=== PATIENT | male | born 1980 | race Caucasian/White ===

== ENCOUNTER 2018-09-04 23:51 | Emergency (ER) | payer BC ==
[2018-09-05] MEDS ORDERED: IBUPROFEN 400 MG TABLET PO ONE
--- NOTE | 2018-09-05 00:05 | Emergency Department Record ---
History of Present Illness - General Chief complaint: Pain Stated complaint: " HURT MY COLLAR BONE" Time Seen by Provider: 09/04/18 23:52 Source: Patient Mode of Arrival: Ambulatory Limitations: No limitations - History of Present Illness Initial comments: 37 yo male presents to ED for evaluation of pain to the right shoulder after rolling over in bed this evening. Patient reports a previous AC separation several years ago, reports similar pain symptoms this evening. Patient denies weakness, numbness, or tingling to the distal upper extremity. Patient denies health problems at his baseline. MD Complaint: Joint pain Onset/Timin -: Hour(s) Location: Right, Shoulder History of Same: Yes -: Yes Arthralgia Quality: Aching Consistency: Constant Improves with: Nothing Worsens with: Other (Movement) Associated Symptoms: Denies other symptoms - Related Data Home Medications Medication Instructions Recorded Confirmed Last Taken Acetaminophen/Diphenhydramine 1 each PO QHS 09/04/18 09/04/18 Unknown [Tylenol Pm Ex-Strength Caplet] Previous Rx's Medication Instructions Recorded Hydrocodone/Acetaminophen [Nickerson 1 each PO Q6H PRN #10 tablet 09/05/18 7.5-325 Tablet] Allergies Allergy/AdvReac Type Severity Reaction Status Date / Time No Known Drug Allergies Allergy Verified 09/04/18 23:58 Review of Systems Constitutional: Denies: Chills, Fever, Malaise, Night sweats Eyes: Denies: Eye discharge, Eye pain ENT: Denies: Congestion, Ear pain, Epistaxis Respiratory: Denies: Cough, Dyspnea Cardiovascular: Denies: Chest pain, Dyspnea on exertion Endocrine: Denies: Fatigue, Heat or cold intolerance Gastrointestinal: Denies: Abdominal pain, Nausea, Vomiting Genitourinary: Denies: Incontinence, Retention Musculoskeletal: Reports: Arthralgia. Denies: Back pain, Gout, Joint swelling Skin: Denies: Bruising, Change in color Neurological: Denies: Abnormal gait, Confusion, Headache, Seizure Psychiatric: Denies: Anxiety Hematological/Lymphatic: Denies: Anemia, Blood Clots Physical Exam - General General Appearance: Alert, Oriented x3, Cooperative, Moderate distress Limitations: No limitations - Head Head exam: Atraumatic, Normocephalic, Normal inspection Head exam detail: negative: Abrasion, Contusion, Weston's sign, General tenderness, Hematoma, Laceration - Eye Eye exam: Normal appearance. negative: Conjunctival injection, Periorbital swelling, Periorbital tenderness, Scleral icterus - ENT Ear exam: negative: Auricular hematoma, Auricular trauma Nasal Exam: negative: Active bleeding, Discharge, Dried blood, Foreign body Mouth exam: negative: Drooling, Laceration, Muffled voice, Tongue elevation - Neck Neck exam: Normal inspection. negative: Meningismus, Tenderness - Respiratory Respiratory exam: Normal lung sounds bilaterally. negative: Rales, Respiratory distress, Rhonchi, Stridor - Cardiovascular Cardiovascular Exam: Regular rate, Normal rhythm, Normal heart sounds - GI/Abdominal GI/Abdominal exam: Soft. negative: Rebound, Rigid, Tenderness - Rectal Rectal exam: Deferred - exam: Deferred - Extremities Extremities exam: Tenderness (TTP with palpation over the anterior aspect of the AC joint, no evidence for dislocation, administrative support assoc strength 5/5, strong distal radial pulse, compartments of the forearm/upper arm are soft on examination.). negative: Calf tenderness, Pedal edema - Back Back exam: Denies: CVA tenderness (R), CVA tenderness (L) - Neurological Neurological exam: Alert, Normal gait, Oriented X3 - Psychiatric Psychiatric exam: Normal affect, Normal mood - Skin Skin exam: Normal color. negative: Abrasion Type of lesion: negative: abrasion Course - Reevaluation(s) Reevaluation #1: 09/05/18 00:24 Right shoulder: Findings c/w AC separation Patient was updated on his radiograph result, will place in sling, provide analgesia, and refer to Dr. Oliveira for orthopedic consultation. Patient was given a prescription for narcotic pain medication as part of the treatment for their acute presentation in the emergency department. Patient was specifically counseled regarding the following: -Risk of overdose -Risk of addiction -Risk of mixing prescribed medication with other home medications ( benzodiazipines, muscle relaxers, alcohol) -Risk of narcotic medication while -Safe disposal of narcotic pain medications -Risk of felony for delivering, sharing, or distributing controlled substances I reviewed the Opiate start talking document with the patient. Patient verbalizes understanding of all risks as described above and all questions were answered. The form was signed following our discussion. Patient appears stable for discharge at this time. Disposition Disposition: Discharge Clinical Impression: AC separation, type 2 Qualifiers: Encounter type: initial encounter Laterality: right Qualified Code(s): S43.101A - Unspecified dislocation of right acromioclavicular joint, initial encounter Disposition: Home, Self-Care Condition: (2) Stable Instructions: Acromioclavicular Separation (ED) Additional Instructions: Return to ED if your symptoms worsen or if you have any concerns. Nickerson as directed. Follow-up with Dr. Oliveira in 3-5 days as directed. Prescriptions: Hydrocodone/Acetaminophen [Nickerson 7.5-325 Tablet] 1 each PO Q6H PRN #10 tablet PRN Reason: Pain - Mod To Severe (5-10) Referrals: BETZAIDA OLIVEIRA [DOCTOR OF OSTEOPATH] - [facility] [Provider Group] Forms: Patient Portal Access Time of Disposition: 00:27 Quality - Quality Measures Quality Measures: N/A - Blood Pressure Screening Does Patient Have Any of the Following: No Blood Pressure Classification: Hypertensive Reading Systolic Measurement: 132 Diastolic Measurement: 102 Screening for High Blood Pressure: < First Hypertensive BP, F/U Documented > [ G8950] First Hypertensive Follow-up Interventions: Referral to alternative/primary care provider.
[2018-09-05] MEDS ORDERED: HYDROCODONE/APAP 7.5/325MG TABLET PO ONE (00:29)
--- NOTE | 2018-09-07 15:33 | RADIOLOGY REPORT ---
DATE: 09/05/2018. EXAM: RIGHT SHOULDER RADIOGRAPH. HISTORY: RIGHT SHOULDER PAIN. THE PATIENT REPORTS HISTORY OF PREVIOUS CLAVICLE SEPARATION FROM INJURY 4 TO 5 YEARS AGO. TECHNIQUE: Three views of the right shoulder. COMPARISON: None. FINDINGS: There is widening of the acromioclavicular joint to approximately 8.0 mm. Chronic-appearing osseous deformity along the inner surface of the distal clavicle is noted and may represent sequela of prior injury. No acute fracture is seen. No glenohumeral joint dislocation. IMPRESSION: ABOVE. JOB NUMBER: [id number] [facility]
== END 2018-09-05 00:44 | disposition home or self-care (01) ==
LOC: ER 23:51
DX: S43.101A Unspecified dislocation of right acromioclavicular joint, initial encounter (principal); X50.0XXA Overexertion from strenuous movement or load, initial encounter; Y99.0 Civilian activity done for income or pay
CPT/HCPCS: 99283

== ENCOUNTER 2018-09-23 17:38 | Emergency (ER) | payer BC ==
--- NOTE | 2018-09-23 18:01 | Emergency Department Record ---
History of Present Illness - General Chief complaint: Pain Stated complaint: RT SHOULDER PAIN Time Seen by Provider: 09/23/18 17:47 Source: Patient Mode of Arrival: Ambulatory - History of Present Illness Initial comments: Three weeks of right shoulder pain fro an injury which occurred at work then. States his shoulder is and waiting to get into Specialty clinic. Complaint: Extremity pain Onset/Timin -: Week(s) Location: Right, Shoulder Severity scale (1-10): 7 Quality: Aching Consistency: Constant Improves with: Nothing Worsens with: Exertion, Weight bearing Associated Symptoms: Denies other symptoms - Related Data Previous Rx's Medication Instructions Recorded Naproxen Sodium [Anaprox Ds] 550 mg PO BID #20 tablet 09/23/18 Allergies Allergy/AdvReac Type Severity Reaction Status Date / Time No Known Drug Allergies Allergy Verified 09/04/18 23:58 Travel Screening - Travel/Exposure Within Last 30 Days Have you traveled within the last 30 days?: No Review of Systems Reviewed: No additional complaints except as noted below Constitutional: Reports: As per HPI. Denies: Chills, Fever, Malaise, Night sweats, Weakness, Weight change Eyes: Reports: As per HPI. Denies: Eye discharge, Eye pain, Photophobia, Vision change ENT: Reports: As per HPI. Denies: Congestion, Dental pain, Ear pain, Epistaxis , Hearing loss, Throat pain Respiratory: Reports: As per HPI. Denies: Cough, Dyspnea, Hemoptysis, Stridor, Wheezes Cardiovascular: Reports: As per HPI. Denies: Arrhythmia, Chest pain, Dyspnea on exertion, Edema, Murmurs, Orthopnea, Palpitations, Paroxysmal nocturnal dyspnea, Rheumatic Fever, Syncope Endocrine: Reports: As per HPI. Denies: Fatigue, Heat or cold intolerance, Polydipsia, Polyuria Gastrointestinal: Reports: As per HPI. Denies: Abdominal pain, Constipation, Diarrhea, Hematemesis, Hematochezia, Melena, Nausea, Vomiting Genitourinary: Reports: As per HPI. Denies: Dysuria, Frequency, Hematuria, Incontinence, Retention, Testicular pain, Testicular mass, Urgency Musculoskeletal: Reports: As per HPI. Denies: Arthralgia, Back pain, Gout, Joint swelling, Myalgia, Neck pain Skin: Reports: As per HPI. Denies: Bruising, Change in color, Change in hair/ nails, Lesions, Pruritus, Rash Neurological: Reports: As per HPI. Denies: Abnormal gait, Confusion, Headache, Numbness, Paresthesias, Seizure, Tingling, Tremors, Vertigo, Weakness Psychiatric: Reports: As per HPI. Denies: Anxiety, Auditory hallucinations, Depression, Homicidal thoughts, Suicidal thoughts, Visual hallucinations Hematological/Lymphatic: Reports: As per HPI. Denies: Anemia, Blood Clots, Easy bleeding, Easy bruising, Swollen glands Past Medical History - SOCIAL HISTORY Smoking Status: Never smoker - RESPIRATORY Hx Respiratory Disorders: No - CARDIOVASCULAR Hx Cardio Disorders: No - NEURO Hx Neuro Disorders: No - GI Hx GI Disorders: No - Hx Genitourinary Disorders: No - ENDOCRINE Hx Endocrine Disorders: No - MUSCULOSKELETAL Hx Musculoskeletal Disorders: No - PSYCH Hx Psych Problems: No - HEMATOLOGY/ONCOLOGY Hx Hematology/Oncology Disorders: No Family Medical History Any Significant Family History?: No Physical Exam - General General Appearance: Alert, Oriented x3, Cooperative, No acute distress - Head Head exam: Normal inspection - Eye Eye exam: Normal appearance, PERRL Pupils: Normal accommodation - ENT ENT exam: Normal exam, Mucous membranes moist, Normal external ear exam, Normal orophraynx, TM's normal bilaterally Ear exam: Normal external inspection. negative: External canal tenderness Nasal Exam: Normal inspection. negative: Discharge, Sinus tenderness Mouth exam: Normal external inspection, Tongue normal Teeth exam: Normal inspection. negative: Dental caries Throat exam: Normal inspection. negative: Tonsillar erythema, Tonsillar exudate - Neck Neck exam: Normal inspection, Full ROM. negative: Tenderness - Respiratory Respiratory exam: Normal lung sounds bilaterally. negative: Respiratory distress - Cardiovascular Cardiovascular Exam: Regular rate, Normal rhythm, Normal heart sounds - GI/Abdominal GI/Abdominal exam: Soft, Normal bowel sounds. negative: Tenderness - Rectal Rectal exam: Deferred - exam: Deferred - Extremities Extremities exam: Normal inspection, Full ROM, Normal capillary refill, Tenderness (Tener over AC joint on palpation no other tenderness, ROM intact.) - Back Back exam: Reports: Normal inspection, Full ROM. Denies: Muscle spasm, Rash noted, Tenderness - Neurological Neurological exam: Alert, Normal gait, Oriented X3, Reflexes normal - Psychiatric Psychiatric exam: Normal affect, Normal mood - Skin Skin exam: Dry, Intact, Normal color, Warm Course Vital Signs 09/23/18 17:40 Temperature 97.4 F L Pulse Rate 82 Respiratory 16 Rate Blood Pressure 140/95 Pulse Ox 97 Medical Decision Making - Management Options MDM Management: No Additional Work-up Planned Disposition Disposition: Discharge Clinical Impression: Right shoulder pain Qualifiers: Chronicity: chronic Qualified Code(s): M25.511 - Pain in right shoulder; G89.29 - Other chronic pain AC separation, type 2 Qualifiers: Encounter type: subsequent encounter Laterality: right Qualified Code(s): S43.101D - Unspecified dislocation of right acromioclavicular joint, subsequent encounter Disposition: Home, Self-Care Condition: (1) Good Instructions: Pain Management in the Elderly (ED) Additional Instructions: Obtain needed paperwork for follow up. Take 50 mg benadryl before bed for sleep. Anaprox as directed for pain alternate this with tylenol 1000 mg every 6 hours. PCP followup as needed. Prescriptions: Naproxen Sodium [Anaprox Ds] 550 mg PO BID #20 tablet Quality - Quality Measures Quality Measures: N/A - Blood Pressure Screening Does Patient Have Any of the Following: No Blood Pressure Classification: Hypertensive Reading Systolic Measurement: 140 Diastolic Measurement: 95 Screening for High Blood Pressure: < Pre-Hypertensive BP, F/U Documented > [ G8950] Pre-Hypertensive Follow-up Interventions: Follow-up with rescreen every year.
== END 2018-09-23 18:18 | disposition home or self-care (01) ==
LOC: ER 17:38
DX: S43.101D Unspecified dislocation of right acromioclavicular joint, subsequent encounter (principal); G89.29 Other chronic pain; M25.511 Pain in right shoulder; X50.0XXD Overexertion from strenuous movement or load, subsequent encounter; Y99.0 Civilian activity done for income or pay
CPT/HCPCS: 99282